=== PATIENT | male | born 1995 | race Two or more races ===

== ENCOUNTER 2025-07-20 08:42 | Emergency (ER) | payer BC, SELFPAY ==
--- NOTE | 2025-07-20 08:58 | XR_ITS ---
Study: Abdomen pelvis CT. INDICATION: Mid abdominal pain with nausea for 1 day. TECHNIQUE: 3 mm slice thickness without contrast. 3 mm sagittal and coronal reformats. 3D surface reconstruction of the skeletal structures with rotating presentation. 1838 images at 0953 hours 20 July 2025. Radiation dose 438 mGy centimeters with dose reduction technique. COMPARISON: None. FINDINGS: The patient was imaged from the aortic valve to the subtrochanteric regions. The heart is normal in size and contour. There is no pericardial effusion or coronary artery plaque. The lungs are fully expanded and free from infiltrates and nodules. The pleural spaces are dry. The gallbladder, kidneys, ureters and urinary bladder are free from calculi. There is no hydronephrosis, ascites or free abdominal air. Parenchyma of the liver, pancreas, spleen, kidneys, adrenal glands and periaortic lymph node region is normal within the limitations of a noncontrasted study. There is no mesenteric edema or lymphadenopathy. The stomach, duodenum, small bowel, appendix and colon are morphologically normal. A small amount of foamy stool occupies the proximal half of the ascending colon. The descending colon is essentially empty. Diminished Alstrom markings are noted in the left colon. The urinary bladder is free from masses. The prostate is normal in size. Spinal alignment is normal and there are no narrowed discs. The aorta and inferior vena cava are normal in caliber. There is no aortic plaque burden. IMPRESSION: No acute diagnostic abnormality.
--- NOTE | 2025-07-20 09:00 | EDNOTE_ITS ---
ED Abdominal Pain RME/HPI General Chief Complaint: Abdominal Pain Stated complaint: ABD PAIN 12/29 Time seen by provider: 07/20/25 08:46 Arrival date/time: 07/20/25 08:42 29-year-old male with no known medical history presents to the emergency room with a chief complaint of 6 out of 10 epigastric abdominal tenderness x 1 day. Patient denies any fevers nausea vomiting or diarrhea. Source: patient Mode of arrival: ambulatory Limitations: no limitations Related Data Previous Rx's ?Medication ?Instructions ?Recorded cephalexin 500 mg capsule 500 mg PO QID #10 caps 02/11 Allergies Allergy/AdvReac Type Severity Reaction Status Date / Time No Known Allergies Allergy Verified 07/20/25 08:43 Review of Systems Review of Systems Systems Reviewed: All systems reviewed, normal except as documented Constitutional Constitutional: Reports system reviewed and no additional complaints, except as documented, Denies fatigue, Denies fever(s), Denies headache(s) and Denies weakness Eyes Eyes: Reports system reviewed and no additional complaints, except as documented, Denies blurry vision and Denies change in vision ENT Ears, Nose, Mouth, and Throat: Reports system reviewed and no additional complaints, except as documented, Denies otalgia, Denies headache(s), Denies nasal congestion, Denies throat swelling and Denies vertigo Cardiovascular Cardiovascular: Reports system reviewed and no additional complaints, except as documented, Denies chest pain, Denies dyspnea and Denies dyspnea on exertion Respiratory Respiratory: Reports system reviewed and no additional complaints, except as documented, Denies chest congestion, Denies cough, Denies dyspnea, Denies dyspnea on exertion and Denies wheezing Gastrointestinal Gastrointestinal: Reports system reviewed and no additional complaints, except as documented, Reports abdominal pain, Reports cramping, Denies dyspepsia, Denies heartburn, Denies loose stools and Denies nausea Genitourinary Genitourinary: Reports system reviewed and no additional complaints, except as documented, Denies dysuria and Denies hematuria Musculoskeletal Musculoskeletal: Reports system reviewed and no additional complaints, except as documented and Denies back pain Integumentary/Breasts Skin/Breast: Reports system reviewed and no additional complaints, except as documented and Denies wounds Neurologic Neurologic: Reports system reviewed and no additional complaints, except as documented, Denies confusion, Denies headache(s), Denies lack of coordination, Denies vertigo and Denies weakness Psychiatric Psychiatric: Reports system reviewed and no additional complaints, except as documented, Denies anxiety, Denies confusion, Denies depression, Denies paranoia, Denies suicidal ideation and Denies tactile hallucinations Endocrine Endocrine: Reports system reviewed and no additional complaints, except as documented and Denies fatigue Hematologic/Lymphatic Hematologic/Lymphatic: Reports system reviewed and no additional complaints, except as documented and Denies lymphadenopathy Allergic/Immunologic Allergic/Immunologic: Reports system reviewed and no additional complaints, except as documented, Denies throat swelling, Denies urticaria and Denies wheezing Past Medical History Past Medical History CARDIAC: Negative Congestive Heart Failure RESPIRATORY: Negative Chronic Obstructive Pulmonary Disease (COPD) GENITOURINARY: Negative Renal Disease ENDOCRINE: Negative Diabetes Mellitus Type 1 or Diabetes Mellitus Type 2 Social History SMOKING STATUS: Never smoker ED Exam General Limitations: Present no limitations General appearance: Present alert and in no apparent distress Head Head exam: Present atraumatic Eye Eye exam: Present normal appearance, PERRL and EOMI ENT ENT exam: Present normal exam, normal oropharynx and mucous membranes moist Neck Neck exam: Present normal inspection, full ROM and trachea midline Chest Chest inspection: Present normal inspection and symmetric chest wall rise Respiratory Respiratory exam: Present normal lung sounds bilaterally Cardiovascular Cardiovascular exam: Present regular rate, normal rhythm and normal heart sounds Abdominal Exam Abdominal exam: Present soft, tenderness and normal bowel sounds; Absent disten tion, guarding, rebound, Joseph's sign or tenderness at McBurney's Point Abdominal tenderness: Present epigastrium and mild Extremities Exam Extremities exam: Present normal inspection and full ROM Back Exam Back exam: Present normal inspection and full ROM Neurological Exam Neurological exam: Present alert, oriented X3 and CN II-XII intact Psychiatric Psychiatric exam: Present normal affect and normal mood Skin Skin exam: Present warm, dry, intact and normal color Course Quality Measures none Orders Category Date Time Status CT abdomen pelvis wo con Stat Exams 07/20/25 08:58 Completed CBC Stat Lab 07/20/25 09:11 Completed CMP [Comprehensive Metabolic Panel] Stat Lab 07/20/25 09:11 Completed Lipase Stat Lab 07/20/25 09:11 Completed UA [Urinalysis] Stat Lab 07/20/25 09:28 Completed Urine Culture Stat Lab 07/20/25 09:28 Received mg Hyd/Al Hyd/Sabrina Susp [Maalox Susp] Med 07/20/25 08:58 Discontinued 30 ml PO X1 ONE Vital Signs Vital signs: Vital Signs Temperature 98.2 F 07/20/25 09:01 Pulse Rate 59 L 07/20/25 09:01 Respiratory Rate 16 07/20/25 09:01 Blood Pressure 154/100 H 07/20/25 09:01 Pulse Oximetry (%) 99 07/20/25 09:01 Oxygen Delivery Method Room Air 07/20/25 09:01 Abdominal Pain MDM MDM Narrative MDM Narrative:: 29-year-old male with no known medical history presents to the emergency room with a chief complaint of 6 out of 10 epigastric abdominal tenderness x 1 day. Patient denies any fevers nausea vomiting or diarrhea. Patient is hemodynamically stable and in no apparent distress. Patient denies any fever any nausea any vomiting any diarrhea Physical examination was completed and shows some 6 out of 10 epigastric abdominal tenderness with palpation. There is no Joseph sign or any tenderness to McBurney's point A CT of the abdomen and pelvis was completed and was negative for any acute findings. CBC CMP were within normal limits. Patient was discharged and educated to follow-up with primary care provider in the next 24 to 48 hours and return to the emergency room for any evidence of worsening signs or symptoms Patient data External records reviewed:: [facility] previous records Clinical information provided by:: patient Social determinants that could affect healthcare access:: none Patient has the following chronic illnesses:: No chronic illness How is presenting disease/condition affected by chronic disease/condition?: no chronic disease Evaluation data The following diagnostics were reviewed and interpreted by me:: lab results and radiology exam(s) Lab and/or radiology exams considered but not ordered:: Labs and radiology exams considered and ordered Interpretation Summary: CT abdomen and pelvis-FINDINGS: The patient was imaged from the aortic valve to the subtrochanteric regions. The heart is normal in size and contour. There is no pericardial effusion or coronary artery plaque. The lungs are fully expanded and free from infiltrates and nodules. The pleural spaces are dry. The gallbladder, kidneys, ureters and urinary bladder are free from calculi. There is no hydronephrosis, ascites or free abdominal air. Parenchyma of the liver, pancreas, spleen, kidneys, adrenal glands and periaortic lymph node region is normal within the limitations of a noncontrasted study. There is no mesenteric edema or lymphadenopathy. The stomach, duodenum, small bowel, appendix and colon are morphologically normal. A small amount of foamy stool occupies the proximal half of the ascending colon. The descending colon is essentially empty. Diminished Alstrom markings are noted in the left colon. The urinary bladder is free from masses. The prostate is normal in size. Spinal alignment is normal and there are no narrowed discs. The aorta and inferior vena cava are normal in caliber. There is no aortic plaque burden. IMPRESSION: No acute diagnostic abnormality. Medications / Prescriptions Medications or Prescriptions considered but not ordered:: Medication given Medication administrations:: Medication Administration History Discontinued Medications Al Hydrox/Mg Hydrox/Simethicone (Mg Hyd/Al Hyd/Sabrina (Maalox Reg) Susp 30 Ml Udc) 30 ml PO X1 ONE Stop: 07/20/25 08:59 Last Admin: 07/20/25 09:24 Dose: 30 ml Documented By: ED Medication given Consultations Consultation(s) initiated? (list below): No Diagnosis Differential diagnosis abdominal pain: abdominal pain, acute appendicitis, constipation and gastroenteritis Most likely diagnosis given after review of the tests above:: Gastroenteritis Admission Indicated Admission indicated?: not indicated Admission Request Was there a request for admission?: No Disposition Plan Disposition Plan: Discharge Discharge Attestation Discharge Attestation: The patient and all family members were given an opportunity to ask questions and understood the discharge instructions. Discharge instructions specifically effects, indications for sooner follow up or return to the emergency department, and the expected course of current diagnosis. Patient condition: Stable Discharge Plan Plan Patient Disposition: HOME (Self Care) Discharge Disposition comment: Stable Prescriptions/Referrals Prescriptions/Med Rec: No Action cephalexin 500 mg capsule 500 mg PO QID Qty: 10 0RF Referrals: No Primary/Family,Physician [Primary Care Provider] - In 1 week Problem List Clinical Impression: Gastroenteritis Patient/Caregiver Discharge Instructions Education Materials: ED Gastroenteritis, Noninfectious Additional Instructions: Please follow-up with your primary care provider in the next [address] of your abdomen and pelvis was negative for any acute findings. Your blood work and urinalysis were within normal limits Please follow-up with your primary care provider for further management For any evidence of worsening signs or symptoms return the emergency room immediately Print Language: Greenlandic Stand Alone Forms: Breana Award Info., Work/School Release, Patient Portal Info Letter
[2025-07-20 09:01] VITALS: BP 154/100; PULSE 59; RESP 16; TEMP 36.8; O2SAT 99; BMI 26.6
[2025-07-20] MEDS: MG HYD/AL HYD/SIME (Maalox Reg) SUSP 30 ML UDC PO (09:24)
[2025-07-20 09:26] LABS: Basophils # (Auto) 0.0 Thou/mm3 (0.0-0.2); Basophils % (Auto) 1 % (0-2.5); Eosinophils # (Auto) 0.0 Thou/mm3 (0.0-0.5); Eosinophils % (Auto) 0 % (0-10); Hematocrit 53.0 % (41.0-53.0); Hemoglobin 17.8 g/dL (13.5-16.0); Immature Granulocytes Auto 0.02 Thou/mm3 (0.00-0.00); Lymphocytes # (Auto) 1.7 Thou/mm3 (1.0-4.8); Lymphocytes % (Auto) 20 % (10-50); Mean Corpuscular HGB Conc 33.6 g/dl (31.0-37.0); Mean Corpuscular Hemoglobin 28.6 pg (25.0-35.0); Mean Corpuscular Volume 85 fL (80-100); Monocytes # (Auto) 0.4 Thou/mm3 (0.0-0.8); Monocytes % (Auto) 5 % (0-12); Neutrophils # (Auto) 6.0 Thou/mm3 (1.8-7.7); Neutrophils % (Auto) 74 % (37-80); Nucleated Red Blood Cell # 0.00 Thou/mm3 (0.00-0.00); Nucleated Red Blood Cell % 0 /100 WBC (0); Platelet Count 172 Thou/mm3 (140-440); RDW Standard Deviation 40.7 fL (35.1-43.9); Red Blood Count 6.22 Miln/mm3 (4.50-5.90); White Blood Count 8.2 Thou/mm3 (3.8-10.6)
[2025-07-20 09:33] LABS: Collection Type, Urine Clean Catch; Squamous Epithelial Cell,Urine 0 /hpf (0-5)
[2025-07-20 09:43] LABS: Alanine Aminotransferase 40 U/L (10-49); Albumin, Serum 5.3 gm/dL (3.5-5.0); Albumin/Globulin Ratio 1.6 (1.2-2.2); Alkaline Phosphatase 70 U/L (46-116); Anion Gap 10 (7-16); Aspartate Amino Transferase 35 U/L (0-34); BUN/Creatinine Ratio 10 Ratio (12-20); Bilirubin,Total 1.0 mg/dL (0.3-1.2); Blood Urea Nitrogen 12 mg/dL (9-23); Calcium 10.1 mg/dL (8.3-10.6); Calcium (Corrected) 10.1 mg/dL (8.5-10.1); Carbon Dioxide 30.0 mMol/L (20.0-31.0); Chloride 101 mMol/L (98-107); Creatinine (Component) 1.2 mg/dL (0.6-1.3); Estimated Creatinine Clearance 90.8 mL/min (>60); Globulin 3.4 gm/dL (2.3-3.5); Glucose 106 mg/dL (74-106); Lipase 26 U/L (12-53); Osmolality,Calculated 280 (275-295); Potassium 4.6 mMol/L (3.4-5.1); Sodium 141 mMol/L (136-145); Total Protein 8.7 gm/dL (5.7-8.2); eGFR > 60 See Note
[2025-07-20 09:52] LABS: Bilirubin,Urine Negative (Negative); Blood,Urine Negative (Negative); Clarity,Urine Clear (Clear/Hazy); Color,Urine Lt-Yellow (Lt Yel-Yel); Glucose, Urine Negative (Negative); Ketones,Urine 1+ (Negative); Leukocyte Esterase,Urine Negative (Negative); Nitrite,Urine Negative (Negative); PH,Urine 6.5 (5.0-7.0); Protein,Urine Negative (Neg - Trace); RBC,Urine 1 /hpf (0-3); Specific Gravity,Urine 1.022 (1.001-1.035); Urobilinogen,Urine Negative mg/dL (0.0-1.0); WBC,Urine < 1 /hpf (0-5)
[2025-07-20 11:42] VITALS: BP 133/96; PULSE 61; RESP 17; TEMP 36.7; O2SAT 97
== END 2025-07-20 11:44 | disposition home or self-care (01) ==
PROVIDERS: Emergency Provider Nurse Practitioner Family
DX: K52.9 Noninfective gastroenteritis and colitis, unspecified (principal)
CPT/HCPCS: 36415; 74176; 80053; 81001; 83690; 85025; 87086; 99283; A9270